=== PATIENT | male | born 1955 | race Caucasian/White ===

== ENCOUNTER 2020-05-07 09:25 | Inpatient (IN) | payer OTHER ==
[~2020-05-07] VITALS: Ht 175.3 cm; Wt 91.2 kg
[2020-05-07 10:26] LABS: BASOPHILS % 0.4 % (0.0-2.0); EOSINOPHILS % 2.2 % (0.0-5.0); HEMATOCRIT. 34.7 % (42.0-52.0); LYMPHOCYTES % 9.7 % (20.0-50.0); MEAN CORPUSCULAR HEMOGLOBIN 25.6 pg (28.0-32.0); MEAN CORPUSCULAR VOLUME 80.4 fL (80.0-94.0); MEAN PLATELET VOLUME 6.5 fl (7.4-10.4); NEUTROPHILS % 82.7 % (40.0-76.0); PLATELET 446 x1000/uL (130-400); RED BLOOD CELL COUNT 4.31 mill/uL (4.7-6.1); RED CELL DISTRIBUTION WIDTH 17.3 % (11.6-14.6)
[2020-05-07 10:34] LABS: CHLORIDE 109 mEq/L (98-107)
[2020-05-07] MEDS ORDERED: FUROSEMIDE 40MG/4ML VIAL IVP ONE (11:45)
[2020-05-07] MEDS: BLOOD SUGAR DIAGNOSTIC STRIP TEST SCH ×3 (12:15→21:00)
[2020-05-07] MEDS ORDERED: LORAZEPAM 0.5MG TABLET PO PRN (12:45)
[2020-05-07] MEDS ORDERED: DOCUSATE SODIUM 100MG CAPSULE PO PRN (12:45)
[2020-05-07] MEDS ORDERED: ONDANSETRON HCL 4MG/2ML INJ IV PRN (12:45)
[2020-05-07] MEDS ORDERED: IPRATROPIUM/ALBUTEROL 0.5-3(2.5)MG/3ML NEB NEB PRN (12:45)
[2020-05-07] MEDS ORDERED: DEXTROSE 50% WATER 50ML SYRINGE IV PRN (12:45)
[2020-05-07] MEDS ORDERED: GUAIFENESIN 200MG/10ML SUGAR FREE UDC PO PRN (12:45)
[2020-05-07] MEDS ORDERED: HYDROCODONE/ACETAMINOPHEN 5/325MG TABLET PO PRN (12:45)
[2020-05-07] MEDS ORDERED: ACETAMINOPHEN 325MG TABLET PO PRN (12:45)
[2020-05-07] MEDS ORDERED: CLONIDINE 0.1MG TABLET PO PRN (12:45)
[2020-05-07] MEDS ORDERED: MAGNESIUM/ALUMINUM HYDROXIDE/SIMETHICONE 30ML UDC PO PRN (12:45)
[2020-05-07] MEDS ORDERED: ACETAMINOPHEN 650MG SUPP PR PRN (12:45)
[2020-05-07] MEDS ORDERED: NA PHOS,M-B/NA PHOS,DI-BA ENEMA 118ML PR PRN (12:45)
[2020-05-07] MEDS ORDERED: METOPROLOL TARTRATE 25MG TABLET PO NR (12:45)
[2020-05-07] MEDS ORDERED: DIPHENHYDRAMINE 50MG/ML VIAL IV PRN (12:45)
[2020-05-07] MEDS ORDERED: ENOXAPARIN 40MG/0.4ML SYR SUBCUT SCH (14:00)
[2020-05-07] MEDS ORDERED: SODIUM POLYSTYRENE SULFONATE 15 G/60 ML BOT PO NR (14:00)
[2020-05-07] MEDS: INSULIN LISPRO 100 UNITS/ML SUBCUT SCH ×3 (14:15→21:00)
[2020-05-07] MEDS: LEVOFLOXACIN 500MG PREMIX 100 ML IV SCH (14:45)
[2020-05-07 15:28] LABS: BG BASE EXCESS -6.4 mmol/L (-2.0-2.0); BG CARBOXYHEMOGLOBIN 0.1 % (0.5-1.5); BG DEOXYHEMOGLOBIN 3.8 % (0.0-5.0); BG FRACTION INSPIRED OXYGEN 28; BG HCO3 ACT 19.5 mmol/L (22.0-26.0); BG METHEMOGLOBIN 0.2 % (0.0-1.5); BG OXYGEN SATURATION 96.2 % (92.0-98.5); BG OXYHEMOGLOBIN 95.9 % (94.0-97.0); BG PCO2 40.2 mmHg (35.0-45.0); BG PH 7.304 (7.350-7.450); BG PO2 89.3 mmHg (75.0-100.0); BG SAMPLE SITE RIGHT BRACHIAL; BG TOTAL HEMOGLOBIN 9.9 g/dL (12.0-18.0); BG VENT MODE NASAL CANNULA
[2020-05-07 16:25] LABS: PROTHROMBIN TIME 10.9 sec (9.6-11.0)
[2020-05-07 16:33] LABS: CREATINE KINASE MB FRACTION 3.5 ng/mL (0.5-3.6)
[2020-05-07] MEDS: FUROSEMIDE 40MG/4ML VIAL IVP SCH (17:46)
[2020-05-07] MEDS ORDERED: METOPROLOL TARTRATE 25MG TABLET PO SCH (21:00)
[2020-05-07] MEDS: FAMOTIDINE 20MG TABLET PO SCH (21:00)
[2020-05-07 23:29] LABS: CREATINE KINASE MB FRACTION 3.2 ng/mL (0.5-3.6)
[2020-05-08 04:38] LABS: BASOPHILS % 0.4 % (0.0-2.0); EOSINOPHILS % 2.6 % (0.0-5.0); HEMATOCRIT. 30.3 % (42.0-52.0); HEMOGLOBIN. 10.1 g/dL (14.0-18.0); LYMPHOCYTES % 14.6 % (20.0-50.0); MEAN CORPUSCULAR HEMOGLOBIN 26.3 pg (28.0-32.0); MEAN CORPUSCULAR VOLUME 78.8 fL (80.0-94.0); MEAN PLATELET VOLUME 6.5 fl (7.4-10.4); MONOCYTES % 9.5 % (2.0-8.0); NEUTROPHILS % 72.9 % (40.0-76.0); PLATELET 350 x1000/uL (130-400); RED BLOOD CELL COUNT 3.84 mill/uL (4.7-6.1); RED CELL DISTRIBUTION WIDTH 17.5 % (11.6-14.6)
[2020-05-08 04:47] LABS: CHLORIDE 109 mEq/L (98-107)
[2020-05-08 04:56] LABS: LDL CHOLESTEROL 37 mg/dL (5-100)
[2020-05-08 04:57] LABS: HDL CHOLESTEROL 39 mg/dL (40-59); T4 FREE 1.31 ng/dL (0.76-1.46)
[2020-05-08] MEDS: INSULIN LISPRO 100 UNITS/ML SUBCUT SCH ×3 (13:19→21:00)
[2020-05-08] MEDS: BLOOD SUGAR DIAGNOSTIC STRIP TEST SCH ×3 (13:19→21:21)
[2020-05-08] MEDS: ASPIRIN 81MG EC TABLET PO SCH (13:52)
[2020-05-08] MEDS: FUROSEMIDE 40MG/4ML VIAL IVP SCH ×2 (13:52→17:49)
[2020-05-08 14:58] LABS: CLARITY URINE CLEAR (CLEAR); KETONES URINE NEGATIVE (NEGATIVE); LEUKOCYTE ESTERASE URINE NEGATIVE (NEGATIVE); NITRITE URINE NEGATIVE (NEGATIVE); OCCULT BLOOD URINE NEGATIVE (NEGATIVE); PH URINE 5.5 (4.5-8.0); PROTEIN URINE 1+ (NEGATIVE); SPECIFIC GRAVITY URINE 1.009 (1.005-1.030); UROBILINOGEN URINE 0.2 E.U./dL (0.2-1.0)
[2020-05-08 14:59] LABS: COLOR URINE PALE YELLOW (YELLOW)
[2020-05-08] MEDS: TICAGRELOR 90 MG TABLET PO SCH (17:49)
[2020-05-08] MEDS: ATORVASTATIN CALCIUM 40MG TABLET PO SCH (21:37)
[2020-05-08] MEDS: CARVEDILOL 3.125 MG TABLET PO SCH (21:37)
[2020-05-08] MEDS: FAMOTIDINE 20MG TABLET PO SCH (21:37)
[2020-05-09 07:05] LABS: BASOPHILS % 1.1 % (0.0-2.0); EOSINOPHILS % 2.1 % (0.0-5.0); HEMATOCRIT. 28.3 % (42.0-52.0); HEMOGLOBIN. 9.4 g/dL (14.0-18.0); LYMPHOCYTES % 11.8 % (20.0-50.0); MEAN CORPUSCULAR HEMOGLOBIN 26.2 pg (28.0-32.0); MEAN CORPUSCULAR VOLUME 78.7 fL (80.0-94.0); MEAN PLATELET VOLUME 6.2 fl (7.4-10.4); MONOCYTES % 8.4 % (2.0-8.0); NEUTROPHILS % 76.6 % (40.0-76.0); PLATELET 369 x1000/uL (130-400); RED BLOOD CELL COUNT 3.59 mill/uL (4.7-6.1); RED CELL DISTRIBUTION WIDTH 17.6 % (11.6-14.6)
[2020-05-09 07:47] LABS: VITAMIN B12 SERUM 735 pg/mL (211-911)
[2020-05-09] MEDS: INSULIN LISPRO 100 UNITS/ML SUBCUT SCH ×4 (08:20→21:00)
[2020-05-09] MEDS: FUROSEMIDE 40MG/4ML VIAL IVP SCH ×2 (09:00→18:19)
[2020-05-09] MEDS: ASPIRIN 81MG EC TABLET PO SCH (09:00)
[2020-05-09] MEDS: TICAGRELOR 90 MG TABLET PO SCH ×2 (09:05→17:00)
[2020-05-09] MEDS: CARVEDILOL 3.125 MG TABLET PO SCH (09:05)
[2020-05-09] MEDS: BLOOD SUGAR DIAGNOSTIC STRIP TEST SCH ×4 (09:05→21:03)
[2020-05-09] MEDS ORDERED: CARVEDILOL 3.125 MG TABLET PO NR (09:30)
[2020-05-09 09:36] LABS: *AMPHETAMINES SCREEN URINE NEGATIVE (NEGATIVE); *BARBITURATES SCREEN URINE NEGATIVE (NEGATIVE); *BENZODIAZEPINES SCREEN URINE NEGATIVE (NEGATIVE); *COCAINE SCREEN URINE NEGATIVE (NEGATIVE)
[2020-05-09 09:37] LABS: CANNABINOID URINE SCREEN NEGATIVE (NEGATIVE); METHADONE URINE SCREEN NEGATIVE (NEGATIVE); OPIATES URINE SCREEN NEGATIVE (NEGATIVE); PHENCYCLIDINE URINE SCREEN NEGATIVE (NEGATIVE)
[2020-05-09 15:49] VITALS: BP 121/77
[2020-05-09 20:00] VITALS: BP 158/76
[2020-05-09] MEDS ORDERED: LEVOFLOXACIN 500MG PREMIX 100 ML IV SCH (20:00)
[2020-05-09] MEDS ORDERED: CARVEDILOL 3.125 MG TABLET PO SCH (21:00)
[2020-05-09] MEDS: LEVOFLOXACIN 500MG PREMIX 100 ML IV SCH (22:15)
[2020-05-09] MEDS: ATORVASTATIN CALCIUM 40MG TABLET PO SCH (22:15)
[2020-05-09] MEDS: CARVEDILOL 6.25 MG TABLET PO SCH (22:16)
[2020-05-09] MEDS: FAMOTIDINE 20MG TABLET PO SCH (22:34)
[2020-05-10] VITALS: BP 138/83
[2020-05-10 04:00] VITALS: BP 153/83
[2020-05-10] MEDS: BLOOD SUGAR DIAGNOSTIC STRIP TEST SCH ×2 (06:57→11:46)
[2020-05-10] MEDS: INSULIN LISPRO 100 UNITS/ML SUBCUT SCH ×2 (06:58→11:47)
[2020-05-10] MEDS: ASPIRIN 81MG EC TABLET PO SCH (07:20)
[2020-05-10 08:00] VITALS: BP 138/80
[2020-05-10] MEDS: FUROSEMIDE 40MG/4ML VIAL IVP SCH (08:17)
[2020-05-10] MEDS: CARVEDILOL 6.25 MG TABLET PO SCH (08:17)
[2020-05-10 12:02] LABS: BASOPHILS % 0.5 % (0.0-2.0); EOSINOPHILS % 1.8 % (0.0-5.0); HEMATOCRIT. 31.9 % (42.0-52.0); HEMOGLOBIN. 10.5 g/dL (14.0-18.0); LYMPHOCYTES % 10.8 % (20.0-50.0); MEAN CORPUSCULAR HEMOGLOBIN 25.9 pg (28.0-32.0); MEAN CORPUSCULAR VOLUME 78.8 fL (80.0-94.0); MEAN PLATELET VOLUME 6.3 fl (7.4-10.4); NEUTROPHILS % 79.9 % (40.0-76.0); PLATELET 388 x1000/uL (130-400); RED BLOOD CELL COUNT 4.05 mill/uL (4.7-6.1); RED CELL DISTRIBUTION WIDTH 17.3 % (11.6-14.6)
[2020-05-10 12:13] LABS: CHLORIDE 104 mEq/L (98-107)
[2020-05-10] MEDS ORDERED: COR6 MT (13:04)
[2020-05-10] MEDS ORDERED: FURO-151 MT (13:04)
[2020-05-10 16:30] VITALS: BP 146/85
[2020-05-11] MEDS ORDERED: LEVOFLOXACIN 500MG TABLET PO SCH (11:00)
== END 2020-05-10 17:14 | disposition home or self-care (01) | DRG 291 ==
LOC: ER 09:25 → 5WST 11:40 → SUPCPDRO 12:39 → ENRESERV 05-08 20:46 → CANRESERV 05-08 20:46 → ENRESERV 05-09 09:39
PROVIDERS: ADMIT Internal Medicine; ATTEND Internal Medicine
DX: I13.0 Hypertensive heart and chronic kidney disease with heart failure and stage 1 through stage 4 chronic kidney disease, or unspecified chronic kidney disease (principal); J18.9 Pneumonia, unspecified organism; I50.33 Acute on chronic diastolic (congestive) heart failure; I31.3 Pericardial effusion (noninflammatory); I25.10 Atherosclerotic heart disease of native coronary artery without angina pectoris; N18.9 Chronic kidney disease, unspecified; E87.5 Hyperkalemia; D72.829 Elevated white blood cell count, unspecified; E11.22 Type 2 diabetes mellitus with diabetic chronic kidney disease; E78.00 Pure hypercholesterolemia, unspecified; E78.5 Hyperlipidemia, unspecified; I44.7 Left bundle-branch block, unspecified; Z20.822 Contact with and (suspected) exposure to COVID-19; E66.9 Obesity, unspecified; Z53.20 Procedure and treatment not carried out because of patient's decision for unspecified reasons; Z79.02 Long term (current) use of antithrombotics/antiplatelets; Z79.82 Long term (current) use of aspirin; Z79.899 Other long term (current) drug therapy; Z68.29 Body mass index [BMI] 29.0-29.9, adult; R06.03 Acute respiratory distress
CPT/HCPCS: 36415; 36600; 71045; 76604; 76770; 80048; 80053; 80305; 82375; 82550; 82553; 82607; 82805; 82962; 83540; 83550; 83880; 84484; 85025; 85044; 93005; 93306; 93970; 96372; 96374; 96375; 96376; 99285; J1650; J1940; J1956; J7040; J8499

== ENCOUNTER 2021-07-27 22:47 | Inpatient (IN) | payer BC, OTHER ==
[~2021-07-27] VITALS: Ht 175.3 cm; Wt 93.7 kg
[~2021-07-27 22:47] MED LIST: ALBU90AE INH; DILT60TA3 MT; FEBU40TA3 PO; FERR-63 PO; FOLI-43 PO; FURO40TA5 PO; METO25TA6 MT; NITR0.4T49 SL; PANT40TA51 MT; ROSU20TA2 PO
[2021-07-28] MEDS ORDERED: ASPIRIN 81MG TABLET PO ONE (00:45)
[2021-07-28] MEDS ORDERED: NITROGLYCERIN 0.4MG TABLET SL SL PRN (00:45)
[2021-07-28 01:10] LABS: CHLORIDE 99 mEq/L (98-107)
[2021-07-28 01:21] LABS: HEMATOCRIT. 25.9 % (42.0-52.0); HEMOGLOBIN. 8.6 g/dL (14.0-18.0); MEAN CORPUSCULAR HEMOGLOBIN 26.2 pg (28.0-32.0); MEAN CORPUSCULAR VOLUME 78.7 fL (80.0-94.0); PLATELET 416 x1000/uL (130-400); RED BLOOD CELL COUNT 3.29 mill/uL (4.7-6.1); RED CELL DISTRIBUTION WIDTH 16.1 % (11.6-14.6)
[2021-07-28 03:46] LABS: PLATELET ESTIMATE INCREASED
[2021-07-28] MEDS ORDERED: FUROSEMIDE 40MG/4ML VIAL IVP SCH (04:15)
[2021-07-28] MEDS ORDERED: VANCOMYCIN 1G PREMIX 200 ML IV SCH (04:15)
[2021-07-28] MEDS ORDERED: PIPERACILLIN/TAZOBACTAM 3.375GM/50ML PREMIX IV SCH (04:15)
[2021-07-28] MEDS ORDERED: VANCOMYCIN 1GM PMX (XELLIA) 200 ML IV SCH (05:00)
[2021-07-28] MEDS ORDERED: NALOXONE HCL 0.4 MG/ML 1ML VIAL IV PRN (06:00)
[2021-07-28] MEDS: HYDROCODONE/ACETAMINOPHEN 5/325MG TABLET PO PRN ×3 (06:04→17:53)
[2021-07-28] MEDS ORDERED: ONDANSETRON HCL 4MG/2ML INJ IV PRN (09:30)
[2021-07-28 11:15] VITALS: BP 103/73
[2021-07-28 12:00] VITALS: BP 101/73
[2021-07-28] MEDS: BLOOD SUGAR DIAGNOSTIC STRIP TEST SCH ×3 (12:15→20:57)
[2021-07-28] MEDS ORDERED: DEXTROSE 50% WATER 50ML SYRINGE IV PRN (12:15)
[2021-07-28] MEDS: INSULIN LISPRO 100 UNITS/ML SUBCUT SCH ×3 (13:12→20:57)
[2021-07-28] MEDS ORDERED: AMLO10TA80 PO (13:38)
[2021-07-28] MEDS ORDERED: SILD20TA PO (13:38)
[2021-07-28] MEDS ORDERED: TAMS-11 PO (13:38)
[2021-07-28] MEDS ORDERED: ATOR40TA70 PO (13:38)
[2021-07-28] MEDS: PIPERACILLIN/TAZOBACTAM 3.375 G in DEXTROSE 5% WATER 50 ML IV SCH ×2 (13:54→21:03)
[2021-07-28] MEDS ORDERED: PIPERACILLIN/TAZOBACTAM 3.375 G in DEXTROSE 5% WATER 50 ML IV SCH (14:00)
[2021-07-28 16:00] VITALS: BP 104/65
[2021-07-28 19:18] LABS: CLARITY URINE CLOUDY (CLEAR); COLOR URINE DARK YELLOW (YELLOW); KETONES URINE TRACE (NEGATIVE); LEUKOCYTE ESTERASE URINE TRACE (NEGATIVE); NITRITE URINE NEGATIVE (NEGATIVE); OCCULT BLOOD URINE NEGATIVE (NEGATIVE); PROTEIN URINE 2+ (NEGATIVE); SPECIFIC GRAVITY URINE 1.021 (1.005-1.030); UROBILINOGEN URINE 0.2 E.U./dL (0.2-1.0)
[2021-07-28 20:00] VITALS: BP 138/69
[2021-07-28] MEDS: IPRATROPIUM/ALBUTEROL 0.5-3(2.5)MG/3ML NEB HHN SCH (20:17)
[2021-07-28] MEDS ORDERED: EPOETIN ALFA 10000UNITS/ML VIAL SUBCUT NR (21:00)
[2021-07-29] VITALS: BP 124/67
[2021-07-29] MEDS: IPRATROPIUM/ALBUTEROL 0.5-3(2.5)MG/3ML NEB HHN SCH ×5 (02:42→21:08)
[2021-07-29 04:00] VITALS: BP 130/70
[2021-07-29] MEDS: INSULIN LISPRO 100 UNITS/ML SUBCUT SCH ×4 (07:01→21:00)
[2021-07-29] MEDS: BLOOD SUGAR DIAGNOSTIC STRIP TEST SCH ×4 (07:01→21:00)
[2021-07-29] MEDS: PIPERACILLIN/TAZOBACTAM 3.375 G in DEXTROSE 5% WATER 50 ML IV SCH ×3 (07:03→21:28)
[2021-07-29 07:27] LABS: HEMOGLOBIN. 7.9 g/dL (14.0-18.0); MEAN CORPUSCULAR HEMOGLOBIN 26.2 pg (28.0-32.0); MEAN CORPUSCULAR VOLUME 79.6 fL (80.0-94.0); MEAN PLATELET VOLUME 7.2 fl (7.4-10.4); PLATELET 374 x1000/uL (130-400); RED BLOOD CELL COUNT 3.01 mill/uL (4.7-6.1); RED CELL DISTRIBUTION WIDTH 16.5 % (11.6-14.6)
[2021-07-29 07:51] LABS: PHOSPHORUS 5.6 mg/dL (2.5-4.9)
[2021-07-29 08:00] VITALS: BP 117/65
[2021-07-29 12:00] VITALS: BP 132/73
[2021-07-29] MEDS: FUROSEMIDE 100MG/10ML VIAL IVP SCH ×2 (12:36→17:16)
[2021-07-29] MEDS ORDERED: SODIUM POLYSTYRENE SULFONATE 15 G/60 ML BOT PO NR (13:00)
[2021-07-29 16:00] VITALS: BP 141/77
[2021-07-29 16:53] LABS: PLATELET ESTIMATE NORMAL
[2021-07-29] MEDS: ACETAMINOPHEN 325MG TABLET PO PRN ×2 (18:40→23:57)
[2021-07-30] VITALS: BP 117/73
[2021-07-30] MEDS: IPRATROPIUM/ALBUTEROL 0.5-3(2.5)MG/3ML NEB HHN SCH ×4 (02:30→21:16)
[2021-07-30] MEDS: HYDROCODONE/ACETAMINOPHEN 5/325MG TABLET PO PRN ×2 (03:35→18:15)
[2021-07-30 04:00] VITALS: BP 118/66
[2021-07-30] MEDS: PIPERACILLIN/TAZOBACTAM 3.375 G in DEXTROSE 5% WATER 50 ML IV SCH ×2 (05:36→18:07)
[2021-07-30] MEDS: BLOOD SUGAR DIAGNOSTIC STRIP TEST SCH ×4 (05:45→20:56)
[2021-07-30] MEDS: INSULIN LISPRO 100 UNITS/ML SUBCUT SCH ×4 (05:45→21:41)
[2021-07-30] MEDS: FUROSEMIDE 100MG/10ML VIAL IVP SCH ×2 (06:30→17:13)
[2021-07-30 07:05] LABS: INR 1.2; PROTHROMBIN TIME 12.4 sec (9.6-11.0)
[2021-07-30 07:30] LABS: HEMATOCRIT. 22.7 % (42.0-52.0); HEMOGLOBIN. 7.5 g/dL (14.0-18.0); MEAN CORPUSCULAR HEMOGLOBIN 26.4 pg (28.0-32.0); MEAN PLATELET VOLUME 7.3 fl (7.4-10.4); PLATELET 306 x1000/uL (130-400); RED BLOOD CELL COUNT 2.83 mill/uL (4.7-6.1); RED CELL DISTRIBUTION WIDTH 16.7 % (11.6-14.6)
[2021-07-30 07:50] VITALS: BP 100/36
[2021-07-30 08:04] LABS: CHLORIDE 97 mEq/L (98-107)
[2021-07-30 08:15] LABS: PHOSPHORUS 6.5 mg/dL (2.5-4.9)
[2021-07-30] MEDS: ACETAMINOPHEN 325MG TABLET PO PRN (11:55)
[2021-07-30 12:21] VITALS: BP 113/53
[2021-07-30] MEDS ORDERED: LORAZEPAM 2MG/ML CPJ IV PRN (14:30)
[2021-07-30] MEDS: METHYLPREDNISOLONE SOD SUCC 40 MG/ML VIAL IV SCH (15:34)
[2021-07-30 16:00] VITALS: BP 126/74
[2021-07-30 16:17] LABS: BG BASE EXCESS -8.9 mmol/L (-2.0-2.0); BG CARBOXYHEMOGLOBIN 0.2 % (0.5-1.5); BG DEOXYHEMOGLOBIN 12.8 % (0.0-5.0); BG FRACTION INSPIRED OXYGEN 21; BG HCO3 ACT 15.5 mmol/L (22.0-26.0); BG METHEMOGLOBIN 0.5 % (0.0-1.5); BG OXYGEN SATURATION 87.1 % (92.0-98.5); BG OXYHEMOGLOBIN 86.5 % (94.0-97.0); BG PCO2 28.4 mmHg (35.0-45.0); BG PH 7.356 (7.350-7.450); BG PO2 55.5 mmHg (75.0-100.0); BG SAMPLE SITE RIGHT RADIAL; BG TOTAL HEMOGLOBIN 8.4 g/dL (12.0-18.0); BG VENT MODE ROOM AIR
[2021-07-30 18:09] LABS: PLATELET ESTIMATE NORMAL
[2021-07-30 20:00] VITALS: BP 134/62
[2021-07-30 20:39] LABS: HEMATOCRIT 21.8 % (42.0-52.0); HEMOGLOBIN 7.1 g/dL (14.0-18.0)
[2021-07-31] VITALS (11 sets, daily range): BP systolic 117–149; BP diastolic 61–78
[2021-07-31] MEDS: IPRATROPIUM/ALBUTEROL 0.5-3(2.5)MG/3ML NEB HHN SCH ×4 (02:51→21:01)
[2021-07-31] MEDS: PIPERACILLIN/TAZOBACTAM 3.375 G in DEXTROSE 5% WATER 50 ML IV SCH ×2 (05:43→17:43)
[2021-07-31] MEDS: BLOOD SUGAR DIAGNOSTIC STRIP TEST SCH ×4 (06:04→21:00)
[2021-07-31] MEDS: INSULIN LISPRO 100 UNITS/ML SUBCUT SCH ×4 (06:12→21:47)
[2021-07-31 07:19] LABS: MEAN CORPUSCULAR HEMOGLOBIN 26.5 pg (28.0-32.0); MEAN CORPUSCULAR VOLUME 78.3 fL (80.0-94.0); MEAN PLATELET VOLUME 7.2 fl (7.4-10.4); PLATELET 305 x1000/uL (130-400); RED CELL DISTRIBUTION WIDTH 16.6 % (11.6-14.6)
[2021-07-31 07:41] LABS: PHOSPHORUS 6.7 mg/dL (2.5-4.9)
[2021-07-31 08:10] LABS: HEMATOCRIT. 18.7 % (42.0-52.0); HEMOGLOBIN. 6.4 g/dL (14.0-18.0)
[2021-07-31] MEDS: FUROSEMIDE 100MG/10ML VIAL IVP SCH ×2 (08:25→17:40)
[2021-07-31] MEDS: METHYLPREDNISOLONE SOD SUCC 40 MG/ML VIAL IV SCH (08:25)
[2021-07-31] MEDS: ACETAMINOPHEN 325MG TABLET PO PRN (09:22)
[2021-07-31 11:59] LABS: PLATELET ESTIMATE NORMAL
[2021-07-31] MEDS: HYDROCODONE/ACETAMINOPHEN 5/325MG TABLET PO PRN (12:11)
[2021-07-31] MEDS: CALCIUM 1250MG TABLET (500MG ELEMENTAL CALCIUM) PO SCH ×2 (12:11→17:40)
[2021-07-31 13:06] LABS: TOTAL IRON BINDING CAPACITY 221 ug/dL (250-450)
[2021-07-31 13:22] LABS: FERRITIN 246 ng/mL (22-322)
[2021-07-31 13:32] LABS: FOLIC ACID (FOLATE) SERUM > 20.00 ng/mL (>5.38)
[2021-07-31 13:37] LABS: VITAMIN B12 SERUM 1103 pg/mL (211-911)
[2021-07-31] MEDS ORDERED: SODIUM BICARBONATE 4% (2.4MEQ) 5ML VIAL IV ONE (13:45)
[2021-07-31 17:07] LABS: HEMATOCRIT 21.5 % (42.0-52.0); HEMOGLOBIN 7.2 g/dL (14.0-18.0)
[2021-07-31 17:13] LABS: INR 1.1; PROTHROMBIN TIME 11.9 sec (9.6-11.0)
[2021-08-01] VITALS (9 sets, daily range): BP systolic 120–155; BP diastolic 67–83
[2021-08-01] MEDS: IPRATROPIUM/ALBUTEROL 0.5-3(2.5)MG/3ML NEB HHN SCH ×3 (01:14→15:45)
[2021-08-01 05:04] LABS: HEMATOCRIT. 23.1 % (42.0-52.0); HEMOGLOBIN. 7.8 g/dL (14.0-18.0); MEAN CORPUSCULAR HEMOGLOBIN 27.2 pg (28.0-32.0); MEAN CORPUSCULAR VOLUME 80.4 fL (80.0-94.0); MEAN PLATELET VOLUME 7.2 fl (7.4-10.4); PLATELET 341 x1000/uL (130-400); RED BLOOD CELL COUNT 2.88 mill/uL (4.7-6.1); RED CELL DISTRIBUTION WIDTH 16.4 % (11.6-14.6)
[2021-08-01] MEDS: PIPERACILLIN/TAZOBACTAM 3.375 G in DEXTROSE 5% WATER 50 ML IV SCH ×2 (05:07→16:51)
[2021-08-01 05:16] LABS: INR 1.1; PHOSPHORUS 6.7 mg/dL (2.5-4.9); PROTHROMBIN TIME 11.8 sec (9.6-11.0)
[2021-08-01] MEDS: BLOOD SUGAR DIAGNOSTIC STRIP TEST SCH ×4 (05:41→21:00)
[2021-08-01] MEDS: CALCIUM 1250MG TABLET (500MG ELEMENTAL CALCIUM) PO SCH ×3 (05:42→17:39)
[2021-08-01] MEDS: INSULIN LISPRO 100 UNITS/ML SUBCUT SCH ×4 (05:53→22:00)
[2021-08-01] MEDS: FUROSEMIDE 100MG/10ML VIAL IVP SCH ×2 (06:18→17:39)
[2021-08-01] MEDS: METHYLPREDNISOLONE SOD SUCC 40 MG/ML VIAL IV SCH (08:56)
[2021-08-01 11:18] LABS: PLATELET ESTIMATE NORMAL
[2021-08-01] MEDS ORDERED: SIMETHICONE 80MG TABLET CHEW PO PRN (11:45)
[2021-08-01 12:40] LABS: HEMATOCRIT 24.6 % (42.0-52.0); HEMOGLOBIN 8.1 g/dL (14.0-18.0)
[2021-08-01] MEDS: SIMETHICONE 80MG TABLET CHEW PO SCH ×2 (16:51→21:58)
[2021-08-01 21:38] LABS: HEMATOCRIT 23.4 % (42.0-52.0); HEMOGLOBIN 7.8 g/dL (14.0-18.0)
[2021-08-02] VITALS: BP 128/73
[2021-08-02 04:00] VITALS: BP 150/66
[2021-08-02] MEDS: PIPERACILLIN/TAZOBACTAM 3.375 G in DEXTROSE 5% WATER 50 ML IV SCH ×2 (05:20→17:47)
[2021-08-02] MEDS: CALCIUM 1250MG TABLET (500MG ELEMENTAL CALCIUM) PO SCH ×3 (05:50→16:55)
[2021-08-02] MEDS: SIMETHICONE 80MG TABLET CHEW PO SCH ×4 (05:51→21:00)
[2021-08-02] MEDS: BLOOD SUGAR DIAGNOSTIC STRIP TEST SCH ×4 (05:59→21:12)
[2021-08-02] MEDS: INSULIN LISPRO 100 UNITS/ML SUBCUT SCH ×4 (06:07→21:00)
[2021-08-02] MEDS: FUROSEMIDE 100MG/10ML VIAL IVP SCH ×2 (06:09→17:48)
[2021-08-02 07:38] LABS: HEMATOCRIT. 23.7 % (42.0-52.0); MEAN CORPUSCULAR HEMOGLOBIN 26.9 pg (28.0-32.0); MEAN CORPUSCULAR VOLUME 80.1 fL (80.0-94.0); MEAN PLATELET VOLUME 7.1 fl (7.4-10.4); PLATELET 363 x1000/uL (130-400); RED BLOOD CELL COUNT 2.96 mill/uL (4.7-6.1); RED CELL DISTRIBUTION WIDTH 16.6 % (11.6-14.6)
[2021-08-02 07:56] LABS: PHOSPHORUS 6.1 mg/dL (2.5-4.9)
[2021-08-02 08:00] VITALS: BP 159/81
[2021-08-02] MEDS: IPRATROPIUM/ALBUTEROL 0.5-3(2.5)MG/3ML NEB HHN SCH ×3 (08:21→20:47)
[2021-08-02] MEDS: METHYLPREDNISOLONE SOD SUCC 40 MG/ML VIAL IV SCH (10:13)
[2021-08-02 12:00] VITALS: BP 135/65
[2021-08-02 14:57] LABS: HEPATITIS B SURFACE ANTIGEN NEGATIVE
[2021-08-02 16:00] VITALS: BP 135/81
[2021-08-02 16:24] LABS: PLATELET ESTIMATE NORMAL
[2021-08-02 20:00] VITALS: BP 150/81
[2021-08-03] VITALS (12 sets, daily range): BP systolic 105–153; BP diastolic 48–88
[2021-08-03] MEDS: IPRATROPIUM/ALBUTEROL 0.5-3(2.5)MG/3ML NEB HHN SCH ×4 (02:22→21:05)
[2021-08-03] MEDS: SIMETHICONE 80MG TABLET CHEW PO SCH ×4 (05:21→20:57)
[2021-08-03] MEDS: BLOOD SUGAR DIAGNOSTIC STRIP TEST SCH ×4 (05:21→21:08)
[2021-08-03] MEDS: INSULIN LISPRO 100 UNITS/ML SUBCUT SCH ×4 (06:24→21:00)
[2021-08-03 06:36] LABS: MEAN CORPUSCULAR HEMOGLOBIN 26.7 pg (28.0-32.0); MEAN CORPUSCULAR VOLUME 80.3 fL (80.0-94.0); PLATELET 299 x1000/uL (130-400); RED BLOOD CELL COUNT 2.63 mill/uL (4.7-6.1)
[2021-08-03 06:50] LABS: PHOSPHORUS 5.3 mg/dL (2.5-4.9)
[2021-08-03] MEDS: FUROSEMIDE 100MG/10ML VIAL IVP SCH ×2 (06:58→17:45)
[2021-08-03] MEDS: CALCIUM 1250MG TABLET (500MG ELEMENTAL CALCIUM) PO SCH ×2 (06:58→14:08)
[2021-08-03 07:50] LABS: HEMATOCRIT. 21.1 % (42.0-52.0)
[2021-08-03] MEDS: METHYLPREDNISOLONE SOD SUCC 40 MG/ML VIAL IV SCH (09:47)
[2021-08-03 14:06] LABS: PLATELET ESTIMATE NORMAL
[2021-08-03 19:42] LABS: HEMATOCRIT 26.7 % (42.0-52.0); HEMOGLOBIN 8.6 g/dL (14.0-18.0)
[2021-08-03] MEDS: EPOETIN ALFA 10000UNITS/ML VIAL SUBCUT SCH (22:09)
[2021-08-03] MEDS ORDERED: INSULIN LISPRO 100 UNITS/ML SUBCUT NR (23:30)
[2021-08-04] VITALS: BP 137/53
[2021-08-04] MEDS: IPRATROPIUM/ALBUTEROL 0.5-3(2.5)MG/3ML NEB HHN SCH ×4 (03:28→22:06)
[2021-08-04 04:00] VITALS: BP 148/73
[2021-08-04] MEDS: BLOOD SUGAR DIAGNOSTIC STRIP TEST SCH ×4 (05:50→21:00)
[2021-08-04] MEDS: SIMETHICONE 80MG TABLET CHEW PO SCH ×4 (07:33→21:56)
[2021-08-04] MEDS: INSULIN LISPRO 100 UNITS/ML SUBCUT SCH ×4 (07:34→22:01)
[2021-08-04] MEDS: FUROSEMIDE 100MG/10ML VIAL IVP SCH ×2 (07:35→16:52)
[2021-08-04 08:00] VITALS: BP 154/89
[2021-08-04 08:05] LABS: PHOSPHORUS 4.2 mg/dL (2.5-4.9)
[2021-08-04 08:06] LABS: HEMATOCRIT. 25.5 % (42.0-52.0); HEMOGLOBIN. 8.5 g/dL (14.0-18.0); MEAN CORPUSCULAR VOLUME 81.1 fL (80.0-94.0); MEAN PLATELET VOLUME 6.9 fl (7.4-10.4); PLATELET 314 x1000/uL (130-400); RED BLOOD CELL COUNT 3.14 mill/uL (4.7-6.1); RED CELL DISTRIBUTION WIDTH 16.3 % (11.6-14.6)
[2021-08-04] MEDS: METHYLPREDNISOLONE SOD SUCC 40 MG/ML VIAL IV SCH (10:14)
[2021-08-04 12:00] VITALS: BP 118/79
[2021-08-04 12:07] LABS: BG BASE EXCESS 2.2 mmol/L (-2.0-2.0); BG CARBOXYHEMOGLOBIN 0.6 % (0.5-1.5); BG DEOXYHEMOGLOBIN 6.4 % (0.0-5.0); BG HCO3 ACT 26.7 mmol/L (22.0-26.0); BG METHEMOGLOBIN 0.1 % (0.0-1.5); BG OXYGEN SATURATION 93.6 % (92.0-98.5); BG OXYHEMOGLOBIN 92.9 % (94.0-97.0); BG PCO2 40.7 mmHg (35.0-45.0); BG PH 7.434 (7.350-7.450); BG PO2 68.4 mmHg (75.0-100.0); BG SAMPLE SITE RIGHT BRACHIAL; BG TOTAL HEMOGLOBIN 9.4 g/dL (12.0-18.0); BG VENT MODE NASAL CANNULA
[2021-08-04 14:00] LABS: PLATELET ESTIMATE NORMAL
[2021-08-04 16:00] VITALS: BP 155/87
[2021-08-04] MEDS: CALCIUM 1250MG TABLET (500MG ELEMENTAL CALCIUM) PO SCH (16:51)
[2021-08-04 20:00] VITALS: BP 137/93
[2021-08-04] MEDS ORDERED: INSULIN GLARGINE 100 UNITS/ML SUBCUT SCH (22:00)
[2021-08-05] VITALS: BP 136/77
[2021-08-05] MEDS ORDERED: INS NPH/REG HM 70-30 100 UNITS/ML 10ML VIAL (HUMULIN 70-30) SUBCUT NR (01:15)
[2021-08-05] MEDS: ACETAMINOPHEN 325MG TABLET PO PRN (03:57)
[2021-08-05 04:00] VITALS: BP 161/87
[2021-08-05] MEDS: FUROSEMIDE 100MG/10ML VIAL IVP SCH ×2 (06:28→17:19)
[2021-08-05] MEDS: INSULIN LISPRO 100 UNITS/ML SUBCUT SCH ×3 (06:29→17:25)
[2021-08-05] MEDS: SIMETHICONE 80MG TABLET CHEW PO SCH ×4 (06:29→21:53)
[2021-08-05] MEDS: BLOOD SUGAR DIAGNOSTIC STRIP TEST SCH ×4 (06:29→21:53)
[2021-08-05] MEDS: CALCIUM 1250MG TABLET (500MG ELEMENTAL CALCIUM) PO SCH ×3 (07:10→16:27)
[2021-08-05 07:45] LABS: HEMATOCRIT. 25.3 % (42.0-52.0); HEMOGLOBIN. 8.3 g/dL (14.0-18.0); MEAN CORPUSCULAR HEMOGLOBIN 26.9 pg (28.0-32.0); MEAN CORPUSCULAR VOLUME 81.8 fL (80.0-94.0); PLATELET 298 x1000/uL (130-400); RED CELL DISTRIBUTION WIDTH 16.7 % (11.6-14.6)
[2021-08-05 07:54] LABS: CHLORIDE 105 mEq/L (98-107)
[2021-08-05 08:00] VITALS: BP 154/85
[2021-08-05] MEDS: IPRATROPIUM/ALBUTEROL 0.5-3(2.5)MG/3ML NEB HHN SCH ×4 (08:36→21:29)
[2021-08-05] MEDS: METHYLPREDNISOLONE SOD SUCC 40 MG/ML VIAL IV SCH (08:54)
[2021-08-05] MEDS ORDERED: CLONIDINE 0.2MG TABLET PO PRN ×2 (11:00→12:00)
[2021-08-05] MEDS ORDERED: POTASSIUM CHLORIDE 20MEQ TABLET SR PO NR (11:00)
[2021-08-05] MEDS ORDERED: CLONIDINE 0.1MG TABLET PO PRN (11:11)
[2021-08-05] MEDS ORDERED: AMLODIPINE 5MG TABLET PO SCH (11:30)
[2021-08-05 12:00] VITALS: BP 142/65
[2021-08-05] MEDS: PIPERACILLIN/TAZOBACTAM 3.375 G in DEXTROSE 5% WATER 50 ML IV SCH (15:44)
[2021-08-05 16:00] VITALS: BP 141/72
[2021-08-05] MEDS: VERAPAMIL HCL 120MG TABLET PO SCH (16:00)
[2021-08-05] MEDS: POTASSIUM CHLORIDE 20MEQ TABLET SR PO SCH (17:19)
[2021-08-05 20:00] VITALS: BP 154/80
[2021-08-06] VITALS: BP 157/86
[2021-08-06] MEDS: INSULIN GLARGINE 100 UNITS/ML SUBCUT SCH ×2 (00:26→22:38)
[2021-08-06] MEDS: INSULIN LISPRO 100 UNITS/ML SUBCUT SCH ×5 (00:26→22:28)
[2021-08-06] MEDS: PIPERACILLIN/TAZOBACTAM 3.375 G in DEXTROSE 5% WATER 50 ML IV SCH ×3 (02:06→22:38)
[2021-08-06] MEDS: IPRATROPIUM/ALBUTEROL 0.5-3(2.5)MG/3ML NEB HHN SCH ×4 (03:22→21:43)
[2021-08-06 04:00] VITALS: BP 149/75
[2021-08-06 04:13] LABS: PLATELET ESTIMATE NORMAL
[2021-08-06 06:02] LABS: HEMATOCRIT. 27.7 % (42.0-52.0); MEAN CORPUSCULAR HEMOGLOBIN 26.9 pg (28.0-32.0); MEAN CORPUSCULAR VOLUME 82.9 fL (80.0-94.0); MEAN PLATELET VOLUME 6.9 fl (7.4-10.4); PLATELET 304 x1000/uL (130-400); RED BLOOD CELL COUNT 3.34 mill/uL (4.7-6.1); RED CELL DISTRIBUTION WIDTH 16.8 % (11.6-14.6)
[2021-08-06] MEDS: BLOOD SUGAR DIAGNOSTIC STRIP TEST SCH ×4 (06:34→21:17)
[2021-08-06] MEDS: FUROSEMIDE 100MG/10ML VIAL IVP SCH ×2 (06:42→17:02)
[2021-08-06 08:00] VITALS: BP 164/92
[2021-08-06] MEDS: VERAPAMIL HCL 120MG TABLET PO SCH (08:57)
[2021-08-06] MEDS: SIMETHICONE 80MG TABLET CHEW PO SCH ×4 (09:54→22:27)
[2021-08-06] MEDS: METHYLPREDNISOLONE SOD SUCC 40 MG/ML VIAL IV SCH (09:54)
[2021-08-06] MEDS: POTASSIUM CHLORIDE 20MEQ TABLET SR PO SCH (09:55)
[2021-08-06] MEDS: CALCIUM 1250MG TABLET (500MG ELEMENTAL CALCIUM) PO SCH ×3 (09:56→17:02)
[2021-08-06 12:00] VITALS: BP 154/80
[2021-08-06 16:00] VITALS: BP 160/86
[2021-08-06 16:06] LABS: PLATELET ESTIMATE NORMAL
[2021-08-06 20:00] VITALS: BP 151/79
[2021-08-06] MEDS: EPOETIN ALFA 10000UNITS/ML VIAL SUBCUT SCH (22:27)
[2021-08-07 00:37] VITALS: BP 156/81
[2021-08-07] MEDS: IPRATROPIUM/ALBUTEROL 0.5-3(2.5)MG/3ML NEB HHN SCH ×4 (02:31→21:17)
[2021-08-07 04:00] VITALS: BP 151/80
[2021-08-07] MEDS: BLOOD SUGAR DIAGNOSTIC STRIP TEST SCH ×4 (06:26→21:00)
[2021-08-07] MEDS: CALCIUM 1250MG TABLET (500MG ELEMENTAL CALCIUM) PO SCH ×3 (06:28→17:40)
[2021-08-07] MEDS: FUROSEMIDE 100MG/10ML VIAL IVP SCH ×2 (06:28→17:40)
[2021-08-07] MEDS: SIMETHICONE 80MG TABLET CHEW PO SCH ×4 (06:28→21:08)
[2021-08-07] MEDS: INSULIN LISPRO 100 UNITS/ML SUBCUT SCH ×4 (06:28→21:00)
[2021-08-07 06:41] LABS: HEMATOCRIT. 28.8 % (42.0-52.0); HEMOGLOBIN. 9.6 g/dL (14.0-18.0); MEAN CORPUSCULAR HEMOGLOBIN 27.4 pg (28.0-32.0); MEAN CORPUSCULAR VOLUME 82.3 fL (80.0-94.0); MEAN PLATELET VOLUME 7.3 fl (7.4-10.4); PLATELET 289 x1000/uL (130-400); RED BLOOD CELL COUNT 3.49 mill/uL (4.7-6.1); RED CELL DISTRIBUTION WIDTH 17.3 % (11.6-14.6)
[2021-08-07 07:09] LABS: PHOSPHORUS 2.9 mg/dL (2.5-4.9)
[2021-08-07 08:00] VITALS: BP 147/75
[2021-08-07] MEDS: VERAPAMIL HCL 120MG TABLET PO SCH (09:00)
[2021-08-07] MEDS: PIPERACILLIN/TAZOBACTAM 3.375 G in DEXTROSE 5% WATER 50 ML IV SCH ×2 (10:00→21:07)
[2021-08-07] MEDS ORDERED: DIATR MEGLU/DIATRIZOATE SOLN 30ML PO SCH (11:15)
[2021-08-07 12:00] VITALS: BP 140/64
[2021-08-07 16:00] VITALS: BP 139/60
[2021-08-07 16:15] LABS: CLARITY URINE CLEAR (CLEAR); COLOR URINE YELLOW (YELLOW); KETONES URINE NEGATIVE (NEGATIVE); LEUKOCYTE ESTERASE URINE NEGATIVE (NEGATIVE); NITRITE URINE NEGATIVE (NEGATIVE); OCCULT BLOOD URINE TRACE (NEGATIVE); PH URINE 5.5 (4.5-8.0); PROTEIN URINE 3+ (NEGATIVE); SPECIFIC GRAVITY URINE 1.012 (1.005-1.030); UROBILINOGEN URINE 0.2 E.U./dL (0.2-1.0)
[2021-08-07 16:34] LABS: PLATELET ESTIMATE NORMAL
[2021-08-07 20:00] VITALS: BP 159/84
[2021-08-07] MEDS: INSULIN GLARGINE 100 UNITS/ML SUBCUT SCH (21:20)
[2021-08-08 00:05] VITALS: BP 141/69
[2021-08-08] MEDS: IPRATROPIUM/ALBUTEROL 0.5-3(2.5)MG/3ML NEB HHN SCH ×3 (01:50→13:05)
[2021-08-08 04:00] VITALS: BP 149/80
[2021-08-08 05:25] LABS: BASOPHILS % 0.2 % (0.0-2.0); EOSINOPHILS % 1.3 % (0.0-5.0); HEMATOCRIT. 33.1 % (42.0-52.0); HEMOGLOBIN. 10.6 g/dL (14.0-18.0); LYMPHOCYTES % 7.5 % (20.0-50.0); MEAN CORPUSCULAR HEMOGLOBIN 26.7 pg (28.0-32.0); MEAN PLATELET VOLUME 7.2 fl (7.4-10.4); MONOCYTES % 5.6 % (2.0-8.0); NEUTROPHILS % 85.4 % (40.0-76.0); PLATELET 292 x1000/uL (130-400); RED BLOOD CELL COUNT 3.98 mill/uL (4.7-6.1); RED CELL DISTRIBUTION WIDTH 17.6 % (11.6-14.6)
[2021-08-08] MEDS: CALCIUM 1250MG TABLET (500MG ELEMENTAL CALCIUM) PO SCH ×3 (05:28→17:43)
[2021-08-08] MEDS: FUROSEMIDE 100MG/10ML VIAL IVP SCH ×2 (05:28→17:43)
[2021-08-08] MEDS: BLOOD SUGAR DIAGNOSTIC STRIP TEST SCH ×4 (05:28→20:51)
[2021-08-08] MEDS: SIMETHICONE 80MG TABLET CHEW PO SCH ×4 (05:28→20:51)
[2021-08-08] MEDS: INSULIN LISPRO 100 UNITS/ML SUBCUT SCH ×4 (05:33→20:55)
[2021-08-08 06:03] LABS: PHOSPHORUS 2.9 mg/dL (2.5-4.9)
[2021-08-08 08:00] VITALS: BP 135/85
[2021-08-08] MEDS: PIPERACILLIN/TAZOBACTAM 3.375 G in DEXTROSE 5% WATER 50 ML IV SCH ×2 (08:50→20:51)
[2021-08-08] MEDS: VERAPAMIL HCL 120MG TABLET PO SCH (08:51)
[2021-08-08 12:00] VITALS: BP 108/67
[2021-08-08 16:00] VITALS: BP 113/69
[2021-08-08 19:55] VITALS: BP 131/79
[2021-08-08] MEDS: INSULIN GLARGINE 100 UNITS/ML SUBCUT SCH (20:55)
[2021-08-09 00:05] VITALS: BP 129/66
[2021-08-09 04:00] VITALS: BP 135/71
[2021-08-09] MEDS: BLOOD SUGAR DIAGNOSTIC STRIP TEST SCH ×4 (05:30→21:25)
[2021-08-09] MEDS: FUROSEMIDE 100MG/10ML VIAL IVP SCH ×2 (05:30→16:55)
[2021-08-09] MEDS: CALCIUM 1250MG TABLET (500MG ELEMENTAL CALCIUM) PO SCH ×3 (05:33→17:09)
[2021-08-09] MEDS: INSULIN LISPRO 100 UNITS/ML SUBCUT SCH ×4 (05:33→22:25)
[2021-08-09] MEDS: SIMETHICONE 80MG TABLET CHEW PO SCH ×4 (05:33→21:25)
[2021-08-09 07:00] LABS: BASOPHILS % 0.3 % (0.0-2.0); EOSINOPHILS % 1.9 % (0.0-5.0); HEMATOCRIT. 34.7 % (42.0-52.0); HEMOGLOBIN. 11.4 g/dL (14.0-18.0); LYMPHOCYTES % 7.4 % (20.0-50.0); MEAN CORPUSCULAR HEMOGLOBIN 26.9 pg (28.0-32.0); MEAN CORPUSCULAR VOLUME 81.5 fL (80.0-94.0); MEAN PLATELET VOLUME 7.5 fl (7.4-10.4); MONOCYTES % 6.1 % (2.0-8.0); NEUTROPHILS % 84.3 % (40.0-76.0); PLATELET 293 x1000/uL (130-400); RED BLOOD CELL COUNT 4.26 mill/uL (4.7-6.1); RED CELL DISTRIBUTION WIDTH 17.4 % (11.6-14.6)
[2021-08-09 07:22] LABS: PHOSPHORUS 3.2 mg/dL (2.5-4.9)
[2021-08-09 08:00] VITALS: BP 131/78
[2021-08-09] MEDS: PIPERACILLIN/TAZOBACTAM 3.375 G in DEXTROSE 5% WATER 50 ML IV SCH ×2 (08:23→21:24)
[2021-08-09] MEDS: VERAPAMIL HCL 120MG TABLET PO SCH (08:23)
[2021-08-09] MEDS: IPRATROPIUM/ALBUTEROL 0.5-3(2.5)MG/3ML NEB HHN SCH ×3 (09:24→20:15)
[2021-08-09 12:00] VITALS: BP 117/77
[2021-08-09 16:00] VITALS: BP 138/82
[2021-08-09 20:00] VITALS: BP 131/75
[2021-08-10] VITALS (17 sets, daily range): BP systolic 114–141; BP diastolic 63–84
[2021-08-10] MEDS: IPRATROPIUM/ALBUTEROL 0.5-3(2.5)MG/3ML NEB HHN SCH ×3 (00:20→13:30)
[2021-08-10] MEDS: FUROSEMIDE 100MG/10ML VIAL IVP SCH (06:36)
[2021-08-10] MEDS: BLOOD SUGAR DIAGNOSTIC STRIP TEST SCH ×3 (06:36→17:07)
[2021-08-10] MEDS: SIMETHICONE 80MG TABLET CHEW PO SCH ×3 (06:36→17:46)
[2021-08-10] MEDS: CALCIUM 1250MG TABLET (500MG ELEMENTAL CALCIUM) PO SCH ×3 (06:36→17:46)
[2021-08-10] MEDS: INSULIN LISPRO 100 UNITS/ML SUBCUT SCH ×3 (06:37→17:07)
[2021-08-10 07:37] LABS: HEMATOCRIT. 32.9 % (42.0-52.0); HEMOGLOBIN. 10.9 g/dL (14.0-18.0); MEAN CORPUSCULAR HEMOGLOBIN 27.2 pg (28.0-32.0); MEAN PLATELET VOLUME 7.6 fl (7.4-10.4); PLATELET 241 x1000/uL (130-400); RED BLOOD CELL COUNT 4.01 mill/uL (4.7-6.1); RED CELL DISTRIBUTION WIDTH 17.9 % (11.6-14.6)
[2021-08-10 07:59] LABS: PHOSPHORUS 3.7 mg/dL (2.5-4.9)
[2021-08-10] MEDS: PIPERACILLIN/TAZOBACTAM 3.375 G in DEXTROSE 5% WATER 50 ML IV SCH (08:02)
[2021-08-10] MEDS: VERAPAMIL HCL 120MG TABLET PO SCH (08:02)
[2021-08-10] MEDS: ACETAMINOPHEN 325MG TABLET PO PRN (08:02)
[2021-08-10] MEDS ORDERED: FUROSEMIDE 40MG TABLET PO SCH (09:00)
[2021-08-10] MEDS ORDERED: LIDOCAINE HCL 1% 20ML VIAL (Pyxis) INJ ONE (09:29)
[2021-08-10] MEDS ORDERED: HEPARIN 1000 UNITS/ML 10ML ONE (09:29)
[2021-08-10] MEDS ORDERED: FENTANYL CITRATE/PF 50MCG/ML 2ML VIAL ONE ×2 (09:30→13:51)
[2021-08-10] MEDS ORDERED: POTASSIUM CHLORIDE 20MEQ TABLET SR PO NR (10:30)
[2021-08-10] MEDS ORDERED: FENTANYL CITRATE/PF 50MCG/ML 2ML VIAL IV NR ×2 (14:15→14:30)
[2021-08-10] MEDS ORDERED: VERA120C3 MT (16:07)
[2021-08-10] MEDS ORDERED: FURO80TA87 MT (16:07)
[2021-08-10 22:25] LABS: PLATELET ESTIMATE NORMAL
== END 2021-08-10 19:50 | disposition home or self-care (01) | DRG 871 ==
LOC: ER 22:47 → 7EST 07-28 05:10 → ENRESERV 07-28 08:39
PROVIDERS: ADMIT Internal Medicine; ATTEND Internal Medicine
PROC: 0W993ZZ Drainage of Right Pleural Cavity, Percutaneous Approach (ICD-10-PCS; 2021-07-30)
PROC: 30233N1 Transfusion of Nonautologous Red Blood Cells into Peripheral Vein, Percutaneous Approach (ICD-10-PCS; 2021-07-31)
PROC: 0W9B3ZZ Drainage of Left Pleural Cavity, Percutaneous Approach (ICD-10-PCS; 2021-07-31)
PROC: 02HV33Z Insertion of Infusion Device into Superior Vena Cava, Percutaneous Approach (ICD-10-PCS; principal; 2021-08-02)
PROC: B518ZZA Fluoroscopy of Superior Vena Cava, Guidance (ICD-10-PCS; 2021-08-02)
PROC: B548ZZA Ultrasonography of Superior Vena Cava, Guidance (ICD-10-PCS; 2021-08-02)
PROC: 5A1D70Z Performance of Urinary Filtration, Intermittent, Less than 6 Hours Per Day (ICD-10-PCS; 2021-08-02)
PROC: 5A1D70Z Performance of Urinary Filtration, Intermittent, Less than 6 Hours Per Day (ICD-10-PCS; 2021-08-03)
PROC: 5A1D70Z Performance of Urinary Filtration, Intermittent, Less than 6 Hours Per Day (ICD-10-PCS; 2021-08-05)
PROC: 5A1D70Z Performance of Urinary Filtration, Intermittent, Less than 6 Hours Per Day (ICD-10-PCS; 2021-08-06)
PROC: 5A1D70Z Performance of Urinary Filtration, Intermittent, Less than 6 Hours Per Day (ICD-10-PCS; 2021-08-07)
PROC: 5A1D70Z Performance of Urinary Filtration, Intermittent, Less than 6 Hours Per Day (ICD-10-PCS; 2021-08-08)
PROC: 02PYX3Z Removal of Infusion Device from Great Vessel, External Approach (ICD-10-PCS; 2021-08-10)
PROC: 02HV33Z Insertion of Infusion Device into Superior Vena Cava, Percutaneous Approach (ICD-10-PCS; 2021-08-10)
PROC: 0JH63XZ Insertion of Tunneled Vascular Access Device into Chest Subcutaneous Tissue and Fascia, Percutaneous Approach (ICD-10-PCS; 2021-08-10)
PROC: B518ZZA Fluoroscopy of Superior Vena Cava, Guidance (ICD-10-PCS; 2021-08-10)
PROC: 5A1D70Z Performance of Urinary Filtration, Intermittent, Less than 6 Hours Per Day (ICD-10-PCS; 2021-08-10)
DX: A41.9 Sepsis, unspecified organism (principal); E43 Unspecified severe protein-calorie malnutrition; J96.20 Acute and chronic respiratory failure, unspecified whether with hypoxia or hypercapnia; J18.9 Pneumonia, unspecified organism; I50.33 Acute on chronic diastolic (congestive) heart failure; N18.6 End stage renal disease; K66.1 Hemoperitoneum; E87.1 Hypo-osmolality and hyponatremia; N17.9 Acute kidney failure, unspecified; J44.1 Chronic obstructive pulmonary disease with (acute) exacerbation; J44.0 Chronic obstructive pulmonary disease with (acute) lower respiratory infection; I48.92 Unspecified atrial flutter; I13.2 Hypertensive heart and chronic kidney disease with heart failure and with stage 5 chronic kidney disease, or end stage renal disease; N39.0 Urinary tract infection, site not specified; I47.2 Ventricular tachycardia; J91.8 Pleural effusion in other conditions classified elsewhere; K57.32 Diverticulitis of large intestine without perforation or abscess without bleeding; E11.22 Type 2 diabetes mellitus with diabetic chronic kidney disease; E11.65 Type 2 diabetes mellitus with hyperglycemia; E78.5 Hyperlipidemia, unspecified; I48.0 Paroxysmal atrial fibrillation; G47.33 Obstructive sleep apnea (adult) (pediatric); F10.10 Alcohol abuse, uncomplicated; E87.5 Hyperkalemia; E78.00 Pure hypercholesterolemia, unspecified; I25.10 Atherosclerotic heart disease of native coronary artery without angina pectoris; I05.0 Rheumatic mitral stenosis; N40.0 Benign prostatic hyperplasia without lower urinary tract symptoms; I27.21 Secondary pulmonary arterial hypertension; E66.9 Obesity, unspecified; Z20.822 Contact with and (suspected) exposure to COVID-19; I44.7 Left bundle-branch block, unspecified; D50.9 Iron deficiency anemia, unspecified; Z99.2 Dependence on renal dialysis; Z79.899 Other long term (current) drug therapy; Z87.891 Personal history of nicotine dependence; Z86.73 Personal history of transient ischemic attack (TIA), and cerebral infarction without residual deficits; I25.2 Old myocardial infarction; Z82.49 Family history of ischemic heart disease and other diseases of the circulatory system; Z83.3 Family history of diabetes mellitus; Z99.81 Dependence on supplemental oxygen; Z68.30 Body mass index [BMI] 30.0-30.9, adult
CPT/HCPCS: 32555; 36415; 36558; 36589; 36600; 71045; 71250; 74176; 76705; 76770; 76937; 77001; 78582; 80048; 80053; 81003; 82040; 82270; 82375; 82550; 82607; 82728; 82746; 82805; 82962; 83540; 83550; 83605; 83615; 83735; 83880; 84100; 84145; 84478; 84484; 85014; 85018; 85025; 85044; 85384; 86705; 86706; 86709; 86803; 86850; 86900; 86920; 87340; 87426; 93005; 93308; 93970; 94640; 94660; 99152; 99153; 99285; A9558; C1750; C1752; C1769; J0885; J1644; J1815; J1940; J2543; J2920; J3010; J3370; J3490; J7060; P9016; U0003; U0005; A4315; G0500

== ENCOUNTER 2021-09-03 10:14 | Emergency (ER) | payer MEDICAID, MEDICARE, OTHER ==
[~2021-09-03] VITALS: Ht 157.5 cm; Wt 85.0 kg
[~2021-09-03 10:14] MED LIST changes: -ALBU90AE INH; +ATOR40TA70 PO; -DILT60TA3 MT; -FEBU40TA3 PO; -FURO40TA5 PO; +FURO80TA87 MT; -METO25TA6 MT; -PANT40TA51 MT; -ROSU20TA2 PO; +SILD20TA PO; +TAMS-11 PO; +VERA120C3 MT
[2021-09-03 10:27] VITALS: BP 103/62
[2021-09-03 11:23] LABS: BASOPHILS % 0.3 % (0.0-2.0); EOSINOPHILS % 0.5 % (0.0-5.0); HEMATOCRIT. 38.2 % (42.0-52.0); HEMOGLOBIN. 12.3 g/dL (14.0-18.0); LYMPHOCYTES % 17.1 % (20.0-50.0); MEAN CORPUSCULAR HEMOGLOBIN 26.3 pg (28.0-32.0); MEAN CORPUSCULAR VOLUME 81.7 fL (80.0-94.0); MONOCYTES % 6.4 % (2.0-8.0); NEUTROPHILS % 75.7 % (40.0-76.0); PLATELET 325 x1000/uL (130-400); RED BLOOD CELL COUNT 4.68 mill/uL (4.7-6.1); RED CELL DISTRIBUTION WIDTH 17.2 % (11.6-14.6)
[2021-09-03 11:32] LABS: CHLORIDE 102 mEq/L (98-107); INR 1.1; PROTHROMBIN TIME 11.3 sec (9.6-11.0)
== END 2021-09-03 13:45 | disposition home or self-care (01) ==
LOC: ER 11:12
DX: T82.49XA Other complication of vascular dialysis catheter, initial encounter (principal); E11.22 Type 2 diabetes mellitus with diabetic chronic kidney disease; I13.2 Hypertensive heart and chronic kidney disease with heart failure and with stage 5 chronic kidney disease, or end stage renal disease; I50.9 Heart failure, unspecified; N18.6 End stage renal disease; E78.00 Pure hypercholesterolemia, unspecified; I25.2 Old myocardial infarction; J44.9 Chronic obstructive pulmonary disease, unspecified; Z99.2 Dependence on renal dialysis; Z20.822 Contact with and (suspected) exposure to COVID-19; Y84.1 Kidney dialysis as the cause of abnormal reaction of the patient, or of later complication, without mention of misadventure at the time of the procedure; Y92.89 Other specified places as the place of occurrence of the external cause
CPT/HCPCS: 36415; 80053; 85025; 85610; 87426; 99283; C9803